=== PATIENT | female | born 1975 | race Caucasian/White ===

== ENCOUNTER 2016-06-07 13:36 | Emergency (ER) ==
[2016-06-07] MEDS ORDERED: ZOFRAN IV ONE (14:17)
[2016-06-07] MEDS ORDERED: ROBINUL IV ONE (14:17)
[2016-06-07] MEDS ORDERED: NS 1,000 ML IV ONE (14:18)
[2016-06-07 14:55] LABS: MANUAL DIFF NEEDED? NO
[2016-06-07 14:58] LABS: BASO% 0.5 % (0.0-0.8); EOS# 0.04 X1000 (0.0-0.7); EOS% 0.4 % (0.0-10.0); HEMATOCRIT 32.5 % (37.0-47.0); HEMOGLOBIN 10.9 g/dL (12.0-16.0); IMM GRAN# 0.02 X1000 (0.0-0.04); IMM GRAN% 0.2 % (0.0-0.5); LYMPH# 5.08 X1000 (1.2-3.4); LYMPH% 53.7 % (20.5-51.1); MCH 26.3 PG (27-31); MCHC 33.5 g/dL (33-37); MCV 78.3 FL (81-99); MONO# 0.72 X1000 (0.11-0.59); MONO% 7.6 % (1.7-9.3); MPV 9.8 FL (7.4-10.4); NEUT% 37.6 % (42.2-75.2); PLT 336 X1000 (130-400); RBC 4.15 XMIL (4.2-5.4)
[2016-06-07 15:14] LABS: AGAP 11; ALBUMIN 3.8 g/dL (3.5-5.0); ALKALINE PHOSPHATASE 73 U/L (32-104); AMYLASE 51 U/L (20-200); BUN 8 mg/dL (8-22); CALCIUM 9.1 mg/dL (8.8-10.2); CHLORIDE 103 mmol/L (98-107); COSMO 269; GOT 20 U/L (10-30); GPT 13 U/L (10-36); LIPASE 31 U/L (13-60); POTASSIUM 3.7 mmol/L (3.5-5.1); SODIUM 136 mmol/L (136-145); TCO2 22 mmol/L (25-35); TOTAL PROTEIN 7.3 g/dL (6.3-8.3)
[2016-06-07 15:51] LABS: URINE CULTURE PL NEEDED? NO; URINE SOURCE CLEAN CATCH
[2016-06-07 16:06] LABS: BILIRUBIN URINE NEGATIVE (NEGATIVE); BLOOD URINE NEGATIVE (NEGATIVE); CLARITY CLEAR (CLEAR); COLOR YELLOW; GLUCOSE URINE NEGATIVE (NEGATIVE); LEUKOCYTES URINE NEGATIVE (NEGATIVE); NITRITE URINE NEGATIVE (NEGATIVE); PROTEIN URINE TRACE mg/dL (NEGATIVE); SP GRAVITY URINE 1.005; UROBILINOGEN URINE NORMAL
[2016-06-07 16:31] LABS: URINE EPITHELIAL CELLS <10 /HPF (<10); URINE WBC <10 /HPF (<10)
--- NOTE | 2016-06-07 16:56 | PROVIDER DOCUMENTATION ---
HPI-Abdominal Pain/GI Problem - General Chief Complaint: N/V/D Stated Complaint: N/V/D Time Seen by Provider: 06/07/16 14:10 Source: patient Allergies/Adverse Reactions: Patient Allergies Allergy/AdvReac Type Severity Reaction Status Date / Time No Known Allergies Allergy Verified 06/07/16 13:48 Home Medications: Home Medication List Medication Instructions Recorded Confirmed Last Taken Type Dicyclomine [Bentyl] 10 mg PO 4XDAY PRN #10 capsule 06/07/16 Unknown Rx Ketorolac [Toradol] 10 mg PO Q6H PRN PRN #6 tablet 06/07/16 Unknown Rx Ondansetron Odt [Zofran 8Mg Odt] 8 mg PO Q8H PRN PRN #20 tablet 06/07/16 Unknown Rx Risperidone [Risperdal] 1 mg PO DAILY 06/07/16 06/07/16 Unknown History Topiramate [Topamax] 100 mg PO 06/07/16 Unknown History - History of Present Illness-ABD Nature of Presenting Problems: 41 yof with N/V/D x 2 days. Patient has known exposure to family with stomach virus. Abdominal Pain Onset Location: reports: generalized abdomen Pain Radiation: reports: no radiation Quality of Pain: reports: cramping, sharp Severity in ED: reports: moderate Onset/Duration: reports: 2 days ago Timing: reports: still present Activities at Onset: reports: none Exposure to sick contacts?: Yes Modifying Factors: improves with: nothing Associated Symptoms: reports: diarrhea, nausea, vomiting Last BM: this morning Dark Stools Present?: reports: none noticed Rectal Bleeding: reports: none Rectal Pain: reports: none # of Vomiting Episodes: 4 Emesis Description: reports: clear Bruising or Bleeding Gums?: No Similar Symptoms Previously?: No Recently seen or treated by another doctor?: No Review of Systems - Adult - REVIEW OF SYSTEMS - ADULT Constitutional: reports: see HPI. denies: no symptoms reported, chills, fever, fatique, night sweats, weight gain, weight loss, other Eyes: reports: no symptoms reported. denies: see HPI, discharge, dry eyes, decreased vision, blurred vision, double vision, eye pain, redness, other Ears, Nose, Mouth & Throat: reports: no symptoms reported. denies: see HPI, ear discharge, ear pain, hearing loss, tinnitus, epistaxis, sinus problem, nose pain, loose teeth, mouth/dental pain, mouth swelling, hoarseness, throat pain, throat swelling, other Cardiovascular: reports: no symptoms reported. denies: see HPI, chest pain, edema, heart murmur, irregular heart rate, orthopnea, palpitations, poor circulation, PND, syncope, other Respiratory: reports: no symptoms reported. denies: see HPI, chronic cough, cough, dyspnea on exertion, excessive sputum production, hemoptysis, pleurisy, shortness of breath, wheezing, other Gastrointestinal: reports: see HPI, abdominal pain, diarrhea, nausea, vomiting. denies: no symptoms reported, hematemesis, constipation, difficulty swallowing , frequent heartburn, poor appetite, rectal bleeding, other Genitourinary: reports: no symptoms reported. denies: see HPI, dysuria, discharge, frequency, flank pain, frequent UTI's, hematuria, hesitency, incontinence, urinary retention, urgency, other Musculoskeletal: reports: no symptoms reported. denies: see HPI, bone pain, back pain, frequent leg cramps, joint pain, joint swelling, muscle aches, muscle weakness, neck pain, other Integumentary: reports: no symptoms reported. denies: see HPI, hives, hair loss , itching, mole changes, nail changes, rash, skin sores/ulcer, skin thickening, other Neurological: reports: no symptoms reported. denies: see HPI, ataxia, dizziness /vertigo, headache/migraines, loss of balance, numbness, paresthesia, seizure, slurred speech, syncope, tremors, other All Other Systems: Reviewed and Negative Past History - Adult - PAST MEDICAL HISTORY-ADULT Review of Records: reports: Old Records Reviewed, Nursing Assessment Review, Medications Reviewed, Social history reviewed & non-contributory. Physical Exam-General - PHYSICAL EXAM-ADULT Initial Vital Signs Reviewed: Yes - CONSTITUTIONAL General Appearance: appears well, alert, no apparent distress. negative: mild distress, moderate distress, severe distress, cachetic, obese, thin, anxious, lethargic, slow to respond, obtunded, combative, other - EYES Eyes: PERRL/EOMI, pink conjunctivae. negative: fundi clear, no AV nicking, anisocoria, conjuctival exudate, EOM palsy, meningismus, pale conjunctivae, photophobia, sclera injected, scleral icterus, subconjunctival hemorrhage, sunken eyes, other - HEAD, EARS, NOSE, MOUTH & THROAT HENMT: normocephalic/atraumatic, moist mucous membranes, normal ENT inspection, TMs normal, pharynx normal. negative: angioedema, dental decay, hearing deficit , pharyngeal erythema, tonsillar exudate, TM abnormal, TM obscurred by cerumen, frontal tenderness, maxillary tenderness, other - NECK Neck: non-tender, full range of motion, supple, normal inspection. negative: Brudzinski's sign, carotid bruit, C-spine tenderness, limited range of motion, lymphadenopathy, meningismus, trachial deviation, tender lateral, tender midline , thyromegaly, other - RESPIRATORY Respiratory: chest non-tender, lungs clear, normal breath sounds, no pleuratic chest pain, no respiratory distress, no accessory muscle use. negative: respiratory distress, decreased breath sounds, accessory muscle use, crackles, rales, rhonchi, stridor, wheezing, dull on percussion, prolonged expiration, pain on inspiration, plerual rub, retractions, splinting, decreased rate, increased rate, crepitus, other - CARDIOVASCULAR Cardiovascular: normal peripheral pulses, regular rate, rhythm, no edema, no gallop, no JVD, no murmur. negative: JVD, bradycardia, tachycardia, diastolic murmur, systolic murmur, gallop/S3, gallop/S4, extra beats, friction rub, irregularly irregular, PMI displaced laterally, other - CHEST (BREASTS) Chest/Breast: deferred. negative: normal breast inspection, no masses/lumps, no tenderness, nipple discharge, tenderness, mass/lump noted, other - GASTROINTESTINAL (ABDOMEN) Abdominal Exam: no organomegaly, no pulsatile mass, abnormal bowel sounds, tenderness. negative: hepatomegaly, spleenomegaly, McBurney's point tenderness , Chandler's sign, obturator sign, prominent aortic pulsations, psoas, Rovsing's sign - GENITOURINARY Female Genitalia/Pelvic Exam: deferred Rectal Exam: deferred Hemoccult Exam: deferred - PSYCHIATRIC Psych/Mental Status: normal mood/affect, normal thought content, normal thought process, oriented x 3 Progress - PLAN OF CARE/RESULTS Progress/Plan/Lab Results: Laboratory Tests 06/07/16 06/07/16 06/07/16 14:40 14:40 15:13 WBC 9.46 RBC 4.15 L Hgb 10.9 L Hct 32.5 L MCV 78.3 L MCH 26.3 L MCHC 33.5 RDW Std Deviation 15.3 H Plt Count 336 MPV 9.8 Immature Gran % (Auto) 0.2 Neut % (Auto) 37.6 L Lymph % (Auto) 53.7 H [place] % (Auto) 7.6 Eos % (Auto) 0.4 Baso % (Auto) 0.5 Immature Gran # (Auto) 0.02 Neut # (Auto) 3.55 Lymph # (Auto) 5.08 H [place] # (Auto) 0.72 H Eos # (Auto) 0.04 Baso # (Auto) 0.05 Sodium 136 Potassium 3.7 Chloride 103 Carbon Dioxide 22 L Anion Gap 11 BUN 8 Creatinine 0.9 Estimated GFR/1.73 m2 > 60 BUN/Creatinine Ratio 9 Glucose 76 Calculated Osmolality 269 Calcium 9.1 Total Bilirubin 0.40 AST 20 ALT 13 Alkaline Phosphatase 73 Total Protein 7.3 Albumin 3.8 Globulin 4.0 Albumin/Globulin Ratio 1.0 Amylase 51 Lipase 31 Urine Source CLEAN CATCH Urine Color YELLOW Urine Clarity CLEAR Urine pH 7.0 Ur Specific [place] 1.005 Urine Protein TRACE A Urine Ketones NEGATIVE Urine Blood NEGATIVE Urine Nitrite NEGATIVE Urine Bilirubin NEGATIVE Urine Urobilinogen NORMAL Urine Microscopic RBC Not Reportable Urine WBC NEGATIVE Urine Microscopic WBC <10 Ur Epithelial Cells <10 Urine Glucose NEGATIVE Vital Signs Temp Pulse Pulse Pulse Pulse Resp BP 06/07/16 17:17 97.1 F L 67 20 150/88 06/07/16 15:42 98 F 81 16 119/78 06/07/16 13:56 80 78 77 06/07/16 13:44 99.1 F 86 18 138/84 BP BP BP Pulse Ox 06/07/16 17:17 100 06/07/16 15:42 100 06/07/16 13:56 137/85 160/87 138/90 06/07/16 13:44 99 No Known Allergies Allergy (Verified 06/07/16 13:48) Dicyclomine [Bentyl] 10 mg PO 4XDAY PRN #10 capsule 06/07/16 Ketorolac [Toradol] 10 mg PO Q6H PRN PRN #6 tablet 06/07/16 Ondansetron Odt [Zofran 8Mg Odt] 8 mg PO Q8H PRN PRN #20 tablet 06/07/16 Risperidone [Risperdal] 1 mg PO DAILY 06/07/16 Topiramate [Topamax] 100 mg PO 06/07/16 VIRAL INTESTINAL INFECTION, UNSPECIFIED (06/07/16) NAUSEA WITH VOMITING, UNSPECIFIED (06/07/16) DIARRHEA, UNSPECIFIED (06/07/16) HEADACHE (06/07/16) OTHER USP (CURRENT) DRUG THERAPY (06/07/16) Orders Category Date Time Status ED: Orthostatic Vital Signs (E as directed Care 06/07/16 13:54 Active Saline Loc DIRECTED Care 06/07/16 14:16 Active NPO Diet 06/07/16 14:[address] ABD/PELVIS W/ IV CONT ONLY [CT] Stat Exams 06/07/16 14:16 Draft AMYLASE [CHEM] Stat Lab 06/07/16 14:40 Completed CBC WITH ELECTRONIC DIFF [HEME] Stat Lab 06/07/16 14:40 Completed COMPREHENSIVE METABOLIC PANEL [CHEM] Stat Lab 06/07/16 14:40 Completed LIPASE [CHEM] Stat Lab 06/07/16 14:[address] W/POSS RFLX CULT [URINALYSIS] Stat Lab 06/07/16 15:13 Completed 0.9% Sodium Chloride Inj [Ns] 1,000 ml Med 06/07/16 14:18 Discontinued IV 999 mls/hr Glycopyrrolate [Robinul] Med 06/07/16 14:17 Discontinued 0.2 mg IV NOW ONE Ondansetron [Zofran] Med 06/07/16 14:17 Discontinued 4 mg IV NOW ONE Departure - Departure Time of Disposition Order: 16:55 DIAGNOSIS: Gastroenteritis and colitis, viral Disposition: HOME 01 Certified Medical Emergency: Emergent Condition: Stable Additional Instructions: ED Follow Up Instructions: You have been treated by a care provider in the Emergency Department. These instructions are being provided to you so you can have an understanding of how to care for yourself upon discharge. Upon discharge from the Emergency Department, you are responsible for making arrangements for follow-up care by a physician of your choice. Take all prescribed medications as directed. Return to the Emergency Department immediately for any new or worsening symptoms. You may call the Physician Referral phone number at [phone] to obtain a list of Physicians who are taking new patients. Prescriptions: Dicyclomine [Bentyl] 10 mg PO 4XDAY PRN #10 capsule PRN Reason: abdominal pain Ketorolac [Toradol] 10 mg PO Q6H PRN PRN #6 tablet PRN Reason: Pain Ondansetron Odt [Zofran 8Mg Odt] 8 mg PO Q8H PRN PRN #20 tablet PRN Reason: Nausea Referrals: None,PCP [Primary Care Provider] - Instructions: Gastritis, Adult, [id number], Dicyclomine tablets or capsules, Ondansetron oral dissolving tablet, Colitis, Ketorolac tablets Attestation - Physician/ NIR Attestation Patient care was provided by Advanced Practice Provider:: Yes Advanced Practice Provider:: Yeison Reynolds Advanced Practice Provider documentation review:: The Mid-level provider documentation, treatment plan and medical decision making was reviewed by the physician who agrees with all treatment and medical decision making by the [facility]. Physician Attestation - Physician Attestation I, the provider, attest to the following statement:: Yeison Reynolds Physician documentation Attestation:: This documentation recorded by the scribe accurately reflects the service I personally performed and the decisions made by me.
--- NOTE | 2016-06-07 17:02 | Diag Imaging Result Document ---
PROCEDURE NAME: CT ABD/PELVIS W/ IV CONT ONLY - 06/07/2016 CT ABDOMEN AND PELVIS WITH INTRAVENOUS CONTRAST: COMPARISON: None. FINDINGS: Aside from linear atelectasis in the right middle lobe, the lung bases are grossly clear. Heart size is normal. The liver, gallbladder, spleen, pancreas, adrenals, and kidneys are normal. No bowel obstruction or inflammation. Normal appendix. There is wall thickening of the urinary bladder which may represent cystitis. Trace pelvic free fluid. Uterus and rectum are normal. Bony structures are intact. IMPRESSION: Probable cystitis. Otherwise, unremarkable.
[2016-06-07 17:18] VITALS: BP 150/88
== END 2016-06-07 17:17 | disposition home or self-care (01) ==
LOC: P.ED 13:36
DX: A08.4 Viral intestinal infection, unspecified (principal); R11.2 Nausea with vomiting, unspecified; R19.7 Diarrhea, unspecified; R51 Headache; Z79.899 Other long term (current) drug therapy
CPT/HCPCS: 74177; 80053; 81001; 82150; 83690; 85025; 96361; 96374; 96375; J2405; J7030; Q9967